=== PATIENT | male | born 1960 | race Caucasian/White ===

== ENCOUNTER 2018-09-01 11:39 | Emergency (ER) | payer SELFPAY ==
[~2018-09-01] VITALS: Ht 165.1 cm; Wt 83.5 kg
[2018-09-01 11:48] VITALS: BP 143/99; PULSE 73; RESP 20; Ht 165.1 cm; Wt 83.5 kg
[2018-09-01] MEDS ORDERED: KETOROLAC 30 MG INJ IM STA (12:09)
--- NOTE | 2018-09-01 12:23 | ERD ---
ER Documentation Chief Complaint Chief Complaint left foot pain x 4 days HPI Patient is a 58 years old male with no known PMHx presenting to the clinic for left foot pain x 4 days. Patient reports being hit by a stella onto his left lateral foot. Patient reports pain has gotten worse with each day and rates it 9/10. Admits to using naproxen without resolution of pain. ROS All systems reviewed and are negative except as per history of present illness. Medications Home Meds Active Scripts Ibuprofen* (Motrin*) 800 Mg Tab, 800 MG PO Q6, #30 TAB Prov:DILLON WOOD PA-C 09/01/18 Allergies Allergies: Coded Allergies: No Known Allergy (Unverified , 09/01/18) PMhx/Soc Medical and Surgical Hx: pt denies Surgical Hx Hx Cardiac Disorders: Yes (HTN) Hx Alcohol Use: Yes (every other day beer) Hx Substance Use: No Hx Tobacco Use: No Smoking Status: Never smoker Physical Exam Vitals Vital Signs Date Temp Pulse Resp B/P (MAP) Pulse Ox O2 O2 Flow FiO2 Time Delivery Rate 09/01/18 98.6 73 20 143/99 96 11:48 (114) Physical Exam Const: No acute distress Head: Atraumatic Eyes: Normal Conjunctiva Resp: Clear to auscultation bilaterally Cardio: Regular rate and rhythm, no murmurs Ext: No cyanosis, or edema Neur: Awake and alert Psych: Normal Mood and Affect Left Foot Exam: Tenderness along 3rd and 4th metatarsal with mild edema. No gross trauma. Skin intact. Results 24 hrs Current Medications Medications Dose Sig/Amira Start Time Status Last (Trade) Ordered Route PRN Stop Time Admin Dose Reason Admin Ketorolac 30 mg ONCE STAT 09/01/18 DC 09/01/18 Tromethamine IM 12:09 12:25 (Toradol) 09/01/18 12:11 Procedures/MDM Patient was seen and evaluated for left foot injury/pain. Left foot X-Ray revealed No acute fracture or dislocation.Tiny plantar calcaneal spur. Patient was given Toradol IM with improvement of symptoms. Patient is stable and ready for discharge. F/U with PCP. Patient will be given Ibuprofen and advised to avoid weight bearing activity of left foot x 1 week. Departure Diagnosis: Primary Impression: Foot pain Laterality: left Qualified Codes: M79.672 - Pain in left foot Condition: Stable Patient Instructions: Sprain Foot Referrals: [facility] Additional Instructions: Patient advised to return to the ED immediately for new or worsening symptoms. Patient advised to follow up with primary care provider in the next 24-48 hours. Patient verbalized understanding and agrees with treatment plan and course of action. If patient has no primary care they may follow up with [facility] + [facility] [address] [place] [id number] or [facility] [address] [place] [address] or [facility] [address] [place] [address] DILLON WOOD PA-C Sep 01, 2018 12:23
[2018-09-01] MEDS ORDERED: IBUP800T48 PO (13:13)
== END 2018-09-01 13:24 | disposition home or self-care (01) ==
LOC: FTE 11:39
DX: M79.672 Pain in left foot (principal); I10 Essential (primary) hypertension
CPT/HCPCS: 73630; 96372; 99284; J1885